=== PATIENT | female | born 2000 | race Caucasian/White ===

== ENCOUNTER 2020-03-28 18:06 | Emergency (ER) | payer MEDICAID, OTHER ==
[~2020-03-28] VITALS: Ht 167.6 cm; Wt 81.8 kg
[~2020-03-28 18:06] MED LIST: MOME17SP BOTHNARES
[2020-03-28] MEDS ORDERED: HYDROcodone/acetaminophen 5mg/325mg tablet PO ONE (20:15)
[2020-03-28] MEDS ORDERED: cyclobenzaprine 10mg tablet PO ONE (20:15)
[2020-03-28] MEDS ORDERED: NAPR-56 PO (21:17)
[2020-03-28] MEDS ORDERED: CYCL-1 PO (21:17)
[2020-03-28 22:03] VITALS: BP 137/79
== END 2020-03-28 21:44 | disposition home or self-care (01) ==
LOC: ER 18:06
DX: S13.4XXA Sprain of ligaments of cervical spine, initial encounter (principal); F12.90 Cannabis use, unspecified, uncomplicated; Z79.899 Other long term (current) drug therapy; V89.2XXA Person injured in unspecified motor-vehicle accident, traffic, initial encounter; Y93.89 Activity, other specified; Y92.89 Other specified places as the place of occurrence of the external cause; Y99.8 Other external cause status
CPT/HCPCS: 72125; 99284